=== PATIENT | female | born 1970 | race Caucasian/White ===

== ENCOUNTER 2019-02-15 08:56 | Outpatient (CLI) | payer OTHER ==
--- NOTE | 2019-02-15 09:53 | MRI ---
EXAM: Lumbar spine MRI without contrast. HISTORY: Lumbar radiculopathy, right lower extremity pain COMPARISON: None FINDINGS: Multiplanar, multisequence MRI examination of the lumbar spine is performed. The conus medullaris region appears unremarkable. No evidence for abnormal marrow signal. Generalized disc desiccation changes and ligament and facet hypertrophic changes. T12-L1 disc level: Unremarkable. L1-L2 disc level: Unremarkable. L2-L3 disc level: Unremarkable. L3-L4 disc level: Mild central canal and lateral recess stenosis and mild left foraminal stenosis. L4-L5 disc level: Mild central canal and moderate bilateral recess stenosis and mild left foraminal s tenosis. L5-S1 disc level: Mild left foraminal stenosis. IMPRESSION: Variable severity multilevel mostly mild to moderate canal, lateral recess, and foraminal stenosis.
== END 2019-02-15 08:57 | disposition home or self-care (01) ==
LOC: BICMRI 08:56
PROVIDERS: ATTEND Family Medicine
DX: M54.16 Radiculopathy, lumbar region (principal); M48.061 Spinal stenosis, lumbar region without neurogenic claudication
CPT/HCPCS: 72148

== ENCOUNTER 2020-02-19 09:25 | Outpatient (CLI) | payer OTHER ==
--- NOTE | 2020-02-19 12:38 | MRI ---
MRI RIGHT KNEE WITHOUT CONTRAST: Date: 02/19/2020 HISTORY: Chronic knee pain. COMPARISON: Reference made to radiograph of 05/29/2019. FINDINGS: Medial Meniscus: Intact. Lateral Meniscus: Intact. 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 PCL is intact, as well as the MCL and LCL. Extensor Mechanism: Quadriceps tendon, patella, and patellar tendon are intact. Mild trochlea dyspla laney. The tibial tuberosity-trochlear groove distance measures 13.0 mm, normal. Cartilage: Patellofemoral compartment: There is mild chondral fraying, Grade I/II, of the lateral patellar face t. No full thickness defect. Medial compartment: 25-30% chondral fraying throughout the medial compartment. Lateral compartment: Intact. Muscles: Muscle signal and bulk normal. Soft Tissues: No significant popliteal cyst. Normal volume joint fluid. No large volume body is appr eciated. IMPRESSION: 1. 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 2. Intact menisci. 3. Mild chondral fraying, Grade I/II, of the patellofemoral and medial compartments without full thi ckness defect or high grade chondral fissures. POS: OFF
== END 2020-02-19 09:26 | disposition home or self-care (01) ==
LOC: BICMRI 09:25
PROVIDERS: ATTEND Family Medicine
DX: M25.561 Pain in right knee (principal); G89.29 Other chronic pain; S83.511A Sprain of anterior cruciate ligament of right knee, initial encounter; M17.11 Unilateral primary osteoarthritis, right knee

== ENCOUNTER 2021-12-30 10:09 | Outpatient (CLI) | payer OTHER | END 2021-12-30 10:10 | disposition home or self-care (01) | LOC: BICULT 10:09 | PROVIDERS: ATTEND Family Medicine | DX: R79.89 Other specified abnormal findings of blood chemistry (principal); Z85.850 Personal history of malignant neoplasm of thyroid | CPT/HCPCS: 76536 ==